=== PATIENT | female | born 1940 | race Caucasian/White ===

== ENCOUNTER 2018-04-01 18:15 | Inpatient (IN) | payer MEDICARE, OTHER, SELFPAY ==
[2018-04-01] VITALS (7 sets, daily range): BP systolic 118–125; BP diastolic 50–56; PULSE 87–130; RESP 14–31; TEMP 37.2–38.1; O2SAT 94–97; BMI 23.3
--- NOTE | 2018-04-01 18:54 | RAD_ITS ---
STUDY: X-RAY CHEST REASON FOR EXAM: Female, 77 years old. Nausea and vomiting for 5 days TECHNIQUE: AP COMPARISON: None. FINDINGS: Surgical clips project in the left axilla. EKG leads project over the chest. The lungs are clear but under expanded. There is no demonstrated pleural abnormality. Normal size heart. Normal mediastinum and shobha. Normal visualized pulmonary arteries. Normal visualized aortic arch and descending thoracic aorta. No acute bony process. There is no demonstrated abnormality of the visualized soft tissue structures of the upper abdomen. RAD/Chest 1 View (Portable) IMPRESSION: 1. Nonacute portable x-ray examination of the chest. Electronically Signed: Nigel Lal MD at 19:43 EST , Service support ,
--- NOTE | 2018-04-01 18:55 | EKG12_ITS ---
Test Reason : N/V Blood Pressure : / mmHG Vent. Rate : 124 BPM Atrial Rate : 124 BPM P-R Int : 128 ms QRS Dur : 078 ms QT Int : 308 ms P-R-T Axes : 054 005 012 degrees QTc Int : 442 ms Sinus tachycardia Inferior infarct , age undetermined Possible Anterior infarct , age undetermined Abnormal ECG Confirmed by SIS BURR, VAHE ([id number]), food editor BRYAN BAPTISTE ([id number]) on 04/04/2018 2:14:10 PM Referred By: MR Confirmed By:VAHE ALEGRE MD
[2018-04-01] MEDS: Ondansetron 4 MG/2 ML Vial IV (19:25)
[2018-04-01] MEDS: Acetaminophen 325 MG Tablet 650 MG PO (19:25)
[2018-04-01] MEDS: 0.9% Normal Saline 1,000 ML 1000 ML IV (19:25)
[2018-04-01 19:42] LABS: ALB/GLOB Ratio 0.5 RATIO (0.9-2.4); AST(SGOT) 163 U/L (15-37); Alanine Aminotransfer ALT/SGPT 93 U/L (13-56); Albumin, Serum 2.2 g/dL (3.2-5.0); Alkaline Phosphatase 538 U/L (45-117); Anion Gap 16 (5-15); BUN 28 mg/dL (7-18); BUN/Creat Ratio 16.4 RATIO (10-20); Calcium,Total 7.2 mg/dL (8.5-10.1); Chloride 97 mmol/L (98-107); Creatinine, Serum 1.71 mg/dL (0.55-1.02); EST Glomerular Filtration Rate 31 mL/min (>60); Est Glom Filt Rate - Afr Amer 37 mL/min (>60); Estimated Creatinine Clearance 25.19 ml/min; Globulin 4.3 g/dL (2.2-4.2); Glucose 182 mg/dL (74-106); Potassium 3.2 mmol/L (3.5-5.1); Protein, Total 6.5 g/dL (6.4-8.2); Sodium Level 134 mmol/L (136-145)
--- NOTE | 2018-04-01 19:53 | CT_ITS ---
STUDY: CT ABDOMEN AND PELVIS WITHOUT CONTRAST REASON FOR EXAM: Female, 77 years old. Nausea, vomiting RADIATION DOSAGE (If Supplied By Facility): CTDIvol = ( 6.48 ) mGy, DLP = ( 322.34 ) mGycm TECHNIQUE: Transaxial images were obtained from the dome of the diaphragm to the symphysis pubis without oral contrast, and without intravenous contrast. Sagittal and coronal images were reconstructed. Individualized dose optimization techniques were used for this CT. COMPARISON: None. FINDINGS: There are multiple cavitary nodules of the lung bases measuring up to 1.8 cm in the right lung base. The visualized portions of the heart are within normal limits. Mild adenopathy of the upper abdomen adjacent to the celiac axis measuring up to 1.5 cm. Mild adenopathy of the retroperitoneum also identified with the largest single lymph node between the aorta and IVC measuring 1.1 cm (short axis). A dominant kervin mass is not seen, however. The liver is abnormal with a large area of diminished rounded density in the left hepatic lobe measuring up to 6.8 cm. Additional low density hepatic masses are seen although limited in detail given lack of IV contrast. The gallbladder is contracted. Normal spleen. Normal pancreas. Normal bilateral adrenal glands. Normal right kidney. Normal left kidney. Stomach is poorly evaluated given lack of distention. Gastric wall thickening cannot be excluded. Normal small intestine. Normal colon. The appendix is visualized and appears normal. There is diffuse atherosclerotic calcification of the abdominal aorta, without a demonstrated aneurysm. Normal inferior vena cava. Bilateral gonadal vein vascular phleboliths are present. Normal urinary bladder. Normal abdominal wall. There are diffuse degenerative changes of the visualized lumbar spine. Right breast is surgically absent. There are surgical clips in the left breast. CT/Abdomen/Pelvis without Cont IMPRESSION: 1. Multiple cavitary pulmonary nodules and multiple (including large dominant) hepatic masses suspicious for neoplasm. Differential diagnosis of cavitary nodules also includes septic emboli, however. Limited evaluation given lack of IV contrast. 2. Mild retroperitoneal and upper abdominal adenopathy but no dominant kervin mass. Electronically Signed: Nigel Lal MD at 21:08 EST , Service support ,
[2018-04-01 19:56] LABS: Absolute Lymphocyte Count 0.11 X10^3/ul (0.83-4.51); Absolute Neutrophil Count 6.3 X10^3/uL (2.0-7.7); Basophil# 0.01 X10^3/uL; Basophil% 0.1 % (0-1); Eosinophil# 0.17 X10^3/uL; Eosinophils% 2.5 % (0-5); Hematocrit 31.8 % (37-47); Lymphocyte # 0.11 X10^3/ul (4.0); Lymphocyte % 1.6 % (19-41); Mean Corp Hgb Conc 31.4 g/gl (32-36); Mean Corpuscular Hgb 30.6 pg (27.0-32.0); Mean Corpuscular Volume 97.2 fL (81-99); Mean Platelet Vol. 10.8 fl (6.2-12.0); Monocyte# 0.06 X10^3/uL; Monocyte% 0.9 % (0-10); Neutrophil % 93.6 % (47-70); Platelet Count 153 K/mm3 (150-450); RBC Distribution Width CV 13.9 % (11.6-14.6); RBC Distribution Width SD 47.3 fl (35.1-43.9); Red Blood Count 3.27 M/mm3 (4.2-5.4); White Blood Count 6.7 K/mm3 (4.4-11.0)
[2018-04-01 20:00] LABS: Differential Indicated SCAN CRITERIA MET; POSITIVE COUNT NO; POSITIVE DIFFERENTIAL YES; POSITIVE MORPHOLOGY YES
--- NOTE | 2018-04-01 20:23 | ED.RN ---
dr. hernandez aware of lactic 6.0
[2018-04-01 20:27] LABS: Anisocytosis RARE; Macrocytosis RARE; Platelet Estimate ADEQUATE (ADEQ)
[2018-04-01 20:37] LABS: Lipase 124 U/L (73-393)
[2018-04-01] MEDS: Lactated Ringers 1,000 ML 999 ML IV (20:40)
[2018-04-01 21:31] LABS: Bacteria 0 SEEN /hpf (None Seen); Mucous, Urine 0 SEEN /hpf (<or=2+)
[2018-04-01 21:37] LABS: Color, Urine Amber (Yellow); Glucose, Dipstick Normal (Normal); Ketone-Dipstick Negative (Negative); Leukocyte Esterase-Dipstick 25 /ul (Negative); Nitrite-Dipstick Negative (Negative); Occult Blood-Urine 25 /ul (Negative); Protein-Dipstick 30 mg/dl (Negative); Specific Gravity, Urine 1.015 (1.002-1.030); Urine Clarity Sl. Cloudy (Clear); Urine Urobilinogen 8 mg/dl (Normal)
[2018-04-01 21:52] LABS: Urine Bilirubin Dipstick 3 mg/dL (Negative)
[2018-04-01 21:54] LABS: Fine Granular Cast- Urine 0-5 SEEN /lpf (0-5)
[2018-04-01 21:55] LABS: Hyaline Cast 0-5 SEEN /lpf (0-5)
[2018-04-01 21:57] LABS: Red Blood Cells-Urine 0-5 SEEN /hpf (0-5)
[2018-04-01 21:58] LABS: White Blood Cells 0-5 SEEN /hpf (0-5)
[2018-04-01 22:00] LABS: Squamous Epithelial Cells - UA 0-5 SEEN /hpf (5-10); Transitional Epithelial - Ur 0-5 SEEN /hpf (0-5)
[2018-04-01] MEDS: Lactated Ringers 1,000 ML 250 ML IV (22:01)
--- NOTE | 2018-04-01 22:57 | PCM.HP.STD ---
Problem List (1) Liver nodules Status: Acute (2) Severe sepsis Status: Acute (3) Dyslipidemia Status: Chronic (4) Hypothyroidism Status: Chronic (5) Diabetes mellitus type 2 Status: Chronic (6) Hypertension Status: Chronic History of Present Illness Date of Admission: 04/01/18 Chief Complaint: Fever for 2-3 days The patient is a 77 year old F with multiple comorbidities as listed below came to ED with fever for 2-3 days. Patient also has generalized weakness and gradually losing weight for last 6 months but not able to quantify exactly. She is legally short of breath on mild exertion. As per the daughter, she had black stool today. Patient does not remember whether she had a colonoscopy or EGD. In ER, heart rate was 130/min, T-max 100.6 Fahrenheit, pulse ox 97% on room air tachypnea, RR 31/min. Basic blood work shows no leukocytosis, BUN 28, creatinine 1.7, anion gap 16 K3.2. Alkaline phosphatase and ALT AST elevated. Troponin 0 0.214. Lipase 124. lactic acid 6.0. Patient denies lower urinary tract symptoms or change in bowel movement. UA no pyuria, no hematuria, LE 25, nitrite negative. \ Past Medical History Past Medical History (Chronic Problems): Chronic Problems Dyslipidemia (Chronic) Hypothyroidism (Chronic) Diabetes mellitus type 2 (Chronic) Hypertension (Chronic) Allergies Penicillins [PCN] Allergy (Verified 04/01/18 19:26) Unknown Home Medications: Ambulatory Orders Medication Instructions Recorded Aspirin [Aspirin, Baby] 81 mg PO DAILY@0800 04/01/18 Atorvastatin Calcium 20 mg PO DAILY 04/01/18 Levothyroxine Sodium 75 mcg DAILY 04/01/18 Losartan Potassium 100 mg DAILY 04/01/18 Metformin(XR) [Glucophage Xr] 500 mg DAILY 04/01/18 Multivit-Min/Iron/Folic/Lutein 1 each PO DAILY 04/01/18 [Centrum Silver Women Tablet] Omeprazole 20 mg PO DAILY 04/01/18 Smoking Status: Never smoker - *Family History Paternal History Items: No pertinent history Review of Systems Constitutional: Reports: Anorexia, Chills, Fever, Weakness, Fatigue. Denies: Weight Change HEENT: Denies: Head Aches, Sinus Congestion, Sinus Drainage Cardiovascular: Denies: Chest Pain, Palpitations Respiratory: Denies: Cough, Shortness of breath at rest, Sputum production Gastrointestinal: Reports: - - Black stool possible melena. Denies: Abdominal Pain, Nausea, Vomiting Genitourinary: Denies: Dysuria Musculoskeletal: Denies: Joint Pain, Joint Tenderness Skin: Denies: Rash, Wounds Neurological: Reports: Balance problems. Denies: Focal weakness, Numbness, Tingling Psychiatric: Denies: Anxiety, Depression, Homicidal Ideations, Suicidal Ideations Hematologic/ Lymphatic: Denies: Easy Bruising, Easy Bleeding VTE Information - Inpt Only VTE Present on Admission: No VTE Mechan Device Prophylaxis: None VTE Pharm Prophylaxis ordered?: Yes Patient Problems: Active and Suspected Problems Liver nodules (Acute) Severe sepsis (Acute) - Physical Exam General: Alert, Oriented x3, Cooperative HEENT: Atraumatic, PERRLA, EOMI, Normocephalic Oral: Dry Mucosa Neck: Supple, No JVD, Negative Carotid Bruits Lungs: Clear to auscultation, No rhonchi, No wheeze, No rales, Diminished - Air entry diminished Cardiovascular: Regular rate, Regular Rhythm, Normal S1, Normal S2, No murmurs Abdomen: Bowel Sounds Present, Soft, Non-Distended, No Hepato-splenomegaly, - - Mild deep tenderness over right upper quadrant Extremities: No edema, Capillary Refill Less than 3 Seconds Skin: No rashes, No breakdown Musculoskeletal: No Tenderness to Palpation of Joints or Extremities, Arthritic Changes, Muscle Wasting Neurological: Cranial nerves II-XII grossly intact, Deep Tendon Reflexes 2+/4 and Symmetrical, Neuro grossly intact Psych/Mental Status: Normal Affect, Appropriate Vital Signs Temp Pulse Resp BP Pulse Ox 100.6 F H 113 H 14 125/54 H 97 04/01/18 22:00 04/01/18 22:00 04/01/18 22:00 04/01/18 22:00 04/01/18 22:00 Oxygen Delivery Method Room Air Weight: 140 lb Body Mass Index (BMI) 23.3 Laboratory Tests Past 24 Hrs 04/01/18 04/01/18 04/01/18 19:10 19:10 19:10 WBC 6.7 RBC 3.27 L Hgb 10.0 L Hct 31.8 L MCV 97.2 MCH 30.6 MCHC 31.4 L RDW 13.9 RDW Differential 47.3 H Plt Count 153 MPV 10.8 Immature Gran % (Auto) 1.300 H Neut % (Auto) 93.6 H Lymph % (Auto) 1.6 L [place] % (Auto) 0.9 Eos % (Auto) 2.5 Baso % (Auto) 0.1 Absolute Neuts (auto) 6.3 Absolute Lymphs (auto) 0.11 L Total Counted Not Reportable Differential Comment SEE COMMENT Platelet Estimate ADEQUATE Anisocytosis RARE Macrocytosis RARE Sodium 134 L Potassium 3.2 L Chloride 97 L Carbon Dioxide 21.0 Anion Gap 16 H BUN 28 H Creatinine 1.71 H Estim Creat Clear Calc 25.19 Est GFR (MDRD) Af Amer 37 L Est GFR (MDRD) Non-Af 31 L BUN/Creatinine Ratio 16.4 Glucose 182 H Lactic Acid Calcium 7.2 L Total Bilirubin 3.90 H AST 163 H ALT 93 H Alkaline Phosphatase 538 H Troponin I 0.214 H Total Protein 6.5 Albumin 2.2 L Globulin 4.3 H Albumin/Globulin Ratio 0.5 L Lipase 124 Urine Color Urine Clarity Urine pH Ur Specific [place] Urine Protein Urine Glucose (UA) Urine Ketones Urine Occult Blood Urine Nitrite Urine Bilirubin Urine Urobilinogen Ur Leukocyte Esterase Urine RBC Urine WBC Ur Squamous Epith Cells Ur Transition Epith Cell Urine Bacteria Hyaline Casts Fine Granular Casts Urine Mucus 04/01/18 04/01/18 19:40 21:25 WBC RBC Hgb Hct MCV MCH MCHC RDW RDW Differential Plt Count MPV Immature Gran % (Auto) Neut % (Auto) Lymph % (Auto) [place] % (Auto) Eos % (Auto) Baso % (Auto) Absolute Neuts (auto) Absolute Lymphs (auto) Total Counted Differential Comment Platelet Estimate Anisocytosis Macrocytosis Sodium Potassium Chloride Carbon Dioxide Anion Gap BUN Creatinine Estim Creat Clear Calc Est GFR (MDRD) Af Amer Est GFR (MDRD) Non-Af BUN/Creatinine Ratio Glucose Lactic Acid 6.0 H* Calcium Total Bilirubin AST ALT Alkaline Phosphatase Troponin I Total Protein Albumin Globulin Albumin/Globulin Ratio Lipase Urine Color Cindy Urine Clarity Sl. Cloudy Urine pH 5.0 Ur Specific [place] 1.015 Urine Protein 30 H Urine Glucose (UA) Normal Urine Ketones Negative Urine Occult Blood 25 H Urine Nitrite Negative Urine Bilirubin 3 H Urine Urobilinogen 8 H Ur Leukocyte Esterase 25 H Urine RBC 0-5 SEEN Urine WBC 0-5 SEEN Ur Squamous Epith Cells 0-5 SEEN Ur Transition Epith Cell 0-5 SEEN Urine Bacteria 0 SEEN Hyaline Casts 0-5 SEEN Fine Granular Casts 0-5 SEEN Urine Mucus 0 SEEN Assessment/Plan All Active Problems Liver nodules (Acute) Severe sepsis (Acute) The patient is a 77 year old F with multiple comorbidities as listed below came to ED with fever for 2-3 days. Patient also has generalized weakness and gradually losing weight for last 6 months but not able to quantify exactly. She is legally short of breath on mild exertion. As per the daughter, she had black stool today. Patient does not remember whether she had a colonoscopy or EGD. In ER, heart rate was 130/min, T-max 100.6 Fahrenheit, pulse ox 97% on room air tachypnea, RR 31/min. Basic blood work shows no leukocytosis, BUN 28, creatinine 1.7, anion gap 16 K3.2. Alkaline phosphatase and ALT AST elevated. Troponin 0 0.214. Lipase 124. lactic acid 6.0. Patient denies lower urinary tract symptoms or change in bowel movement. UA no pyuria, no hematuria, LE 25, nitrite negative. Chest x-ray shows nonacute cardiopulmonary abnormality. CT abdomen was done which showed multiple cavitary pulmonary nodules and multiple including large dominant hepatic masses suspicious for neoplasm. Mild retroperitoneal upper abdominal adenopathy. This raises suspicion for septic emboli or metastasis. Patient is further admitted. 1. Septic shock probably secondary to septic emboli in lungs or liver/neoplastic/metastatic: It seems patient does not follow regularly follow-up PCP. Patient is being admitted in ICU for suspicion of septic shock with high lactic acid which may complicated from metformin and hypoperfusion. Blood cultures x2. Soda Fountain Operator consult for further opinion. Currently patient is not hypotensive. Exact primary is unclear. Consult general surgery for possible colonoscopy. Patient had aztreonam 2 g in ER and vancomycin. Started on IV Levaquin. Shunt is allergic to penicillin 2. Elevated LFT, possible from multiple liver nodules/possible metastatic colon total bili is 3.9, ALT AST, 93/163, alkaline phosphatase 538. 3. Acute kidney injury, possible from dehydration/ATN from sepsis: IV fluid normal saline. Monitor intake and output. UA is negative for pyuria/UTI. 4. Electrolyte abnormality with high anion gap metabolic acidosis: Sodium 134. Anion gap 16 bicarb 21. IV fluid normal saline. Replace and monitor electrolytes. 5. Possible GI bleed with normochromic normocytic anemia: As per the daughter, patient had one black stool today. Patient not on iron supplements. H&H 01/04.8, platelet count 153. No previous labs to compare. Monitor CBC daily. Multiple comorbidities including hypertension, dyslipidemia, hypothyroidism: Multiple comorbidities complicates the present care and expect difficult and delay recovery Home medication reconciliation done. 6. DVT prophylaxis: Pharmacological prophylaxis contracted in view of possible GI bleed with anemia. Clinical Impression(s) from Imaging Studies Chest X-Ray 04/01/18 18:54 IMPRESSION: 1. Nonacute portable x-ray examination of the chest. Abdomen/Pelvis CT 04/01/18 19:53 IMPRESSION: 1. Multiple cavitary pulmonary nodules and multiple (including large dominant) hepatic masses suspicious for neoplasm. Differential diagnosis of cavitary nodules also includes septic emboli, however. Limited evaluation given lack of IV contrast. 2. Mild retroperitoneal and upper abdominal adenopathy but no dominant kervin mass. Code Visit Inpatient E&M: 10979 Init Hosp L3
[2018-04-01] MEDS: Vancomycin IV 1,000 MG/200 ML BAG 200 MG IV (23:24)
--- NOTE | 2018-04-01 23:38 | ED.DCSUM_ITS ---
- ER Visit Summary Date of Service: 04/01/18 Chief Complaint: Generalized illness History of Present Illness: The patient is a 77 F presenting for evaluation secondary to a generalized illness. Patient reports that over the course of the last week, but family members state it is more so over the last couple of months the patient has been having a general functional decline. This is been associated with intermittent fevers, nausea vomiting, generalized weakness. This is also been associated with decreased appetite and p.o. intake. Been associated with episodes of nausea and vomiting this week, no diarrhea, no reports of abdominal pain dysuria or hematuria. Patient denies any cough shortness of breath or chest pain associated with this. She denies any prior similar episodes in the past. Review of systems otherwise negative. Physical Examination: Vital signs notable for heart rate of 129. Well-nourished female no acute distress. Head normocephalic. No conjunctival pallor or scleral icterus. Dry mucous membranes. Neck supple. Heart tachycardic and regular, lungs sounds clear to auscultation bilaterally no respiratory distress. Abdomen was soft nontender nondistended. No peripheral edema noted. Skin normal color. No lateralizing neurological deficits. Test Results: EKG demonstrates sinus tachycardia with a rate of 124 with inferior Q waves. Chest x-ray shows no acute pathology. CT abdomen and pelvis shows some lung lesions and large liver lesion which are concerning for the possibility of malignancy. CBC unremarkable with a neutrophilic predominance. Chemistry shows evidence of elevated total bilirubin elevated alkaline phosphatase and normal lipase. Troponin elevated to an indeterminate level and lactic acid 6 Emergency Department Course and Treatment: Patient presented secondary to generalized illness. She was profoundly tachycardic so workup was obtained she was given a liter of normal saline hydration. Patient was found to have elevated liver enzymes and lactic acidosis. She was given an additional liter of lactated Ringer's, blood cultures were obtained. CT abdomen and pelvis was obtained to ascertain the patient's reason for having elevated liver enzymes and shows concern for the possibility of malignancy. I did contact oncology about this. Due to the fact that there is potential concern for infection, I started the patient on vancomycin and aztreonam. Patient will be admitted for further workup and treatment. Disposition: Admission Impression: 1. Liver mass with potential lung metastases 2. Lactic acidosis 3. Elevated troponin Critical care time 45 minutes This note was generated with [employer] software. It may contain incorrect words, spelling, and punctuation that were not noted in review of the chart prior to signing ED Disposition - Plan for ED Patient: Chief Complaint: Nausea/Vomiting
[2018-04-01 23:44] LABS: Reflex Lactate? Y
[2018-04-02] VITALS (26 sets, daily range): BP systolic 101–156; BP diastolic 34–99; PULSE 89–120; RESP 15–27; TEMP 36.8–37.3; O2SAT 94–98; BMI 23.3
[2018-04-02] MEDS: levoFLOXacin IV 500 MG/100 ML BAG 100 MG IV (01:00)
[2018-04-02] MEDS: 0.9% Normal Saline 1,000 ML 150 ML IV ×3 (01:00→19:16)
[2018-04-02] MEDS: Pantoprazole Sodium 40 MG Tablet PO ×2 (01:00→11:13)
[2018-04-02 01:03] LABS: Lactic Acid 4.3 mmol/L (0.4-2.0)
[2018-04-02 01:09] LABS: International Normalized Ratio 1.4; Prothrombin Time (Protime)PT. 16.9 SECONDS (11.7-14.9)
[2018-04-02 01:10] LABS: Partial Thromboplast Time 34.5 Seconds (24.1-36.2)
[2018-04-02] MEDS: 0.9% Normal Saline 1,000 ML 999 ML IV (01:30)
[2018-04-02 04:37] LABS: Absolute Lymphocyte Count 0.31 X10^3/ul (0.83-4.51); Absolute Neutrophil Count 9.8 X10^3/uL (2.0-7.7); Basophil# 0.01 X10^3/uL; Basophil% 0.1 % (0-1); Hematocrit 25.7 % (37-47); Hemoglobin 8.1 g/dl (12.0-15.0); Lymphocyte # 0.31 X10^3/ul (4.0); Lymphocyte % 2.8 % (19-41); Mean Corp Hgb Conc 31.5 g/gl (32-36); Mean Corpuscular Hgb 30.2 pg (27.0-32.0); Mean Corpuscular Volume 95.9 fL (81-99); Mean Platelet Vol. 10.6 fl (6.2-12.0); Monocyte# 0.64 X10^3/uL; Monocyte% 5.8 % (0-10); Neutrophil # 9.79 X10^3/uL (2.7-7.7); Neutrophil % 88.7 % (47-70); Platelet Count 96 K/mm3 (150-450); RBC Distribution Width CV 13.7 % (11.6-14.6); RBC Distribution Width SD 45.5 fl (35.1-43.9); Red Blood Count 2.68 M/mm3 (4.2-5.4)
[2018-04-02 04:39] LABS: Differential Indicated SCAN CRITERIA MET; POSITIVE COUNT YES; POSITIVE DIFFERENTIAL YES; POSITIVE MORPHOLOGY YES
[2018-04-02 04:59] LABS: AST(SGOT) 139 U/L (15-37); Alanine Aminotransfer ALT/SGPT 73 U/L (13-56); Albumin, Serum 1.6 g/dL (3.2-5.0); Alkaline Phosphatase 329 U/L (45-117); Anion Gap 12 (5-15); BUN 24 mg/dL (7-18); BUN/Creat Ratio 19.2 RATIO (10-20); Bilirubin, Direct 2.98 mg/dL (0.00-0.30); Calcium,Total 6.6 mg/dL (8.5-10.1); Chloride 104 mmol/L (98-107); Creatinine, Serum 1.25 mg/dL (0.55-1.02); EST Glomerular Filtration Rate 44 mL/min (>60); Est Glom Filt Rate - Afr Amer 54 mL/min (>60); Estimated Creatinine Clearance 33.06 ml/min; Globulin 3.3 g/dL (2.2-4.2); Glucose 138 mg/dL (74-106); Magnesium 0.8 mg/dL (1.6-2.6); Phosphorus 2.3 mg/dL (2.5-4.9); Potassium 4.2 mmol/L (3.5-5.1); Protein, Total 4.9 g/dL (6.4-8.2); Sodium Level 138 mmol/L (136-145)
[2018-04-02] MEDS: Magnesium Sulfate 4gm/100mL 4 GM/100 ML IV.SOLN. IV (05:42)
[2018-04-02] MEDS: Levothyroxine 75 MCG Tablet PO (05:42)
--- NOTE | 2018-04-02 06:41 | CON.PCM_ITS ---
Problem List (1) Liver nodules Status: Acute (2) Severe sepsis Status: Acute (3) Dyslipidemia Status: Chronic (4) Hypothyroidism Status: Chronic (5) Diabetes mellitus type 2 Status: Chronic (6) Hypertension Status: Chronic Reason for Consult Date of Consultation: 04/02/18 Reason for Consultation: Severe sepsis History of Present Illness: The patient is a 77 year old F, with past medical history listed below, who pre sented to [facility] on 04/01/2018 secondary to generalized weakness. Patient reportedly had had general functional decline over weeks prior to presentation. Patient was brought in at the urging of her family. Patient reportedly has had intermittent fevers of last 2-3 days and generalized weakness. Patient had reported some nausea and vomiting, but is denying this at my evaluation. Patient does admit to decreased appetite and p.o. intake. Patient denies any abdominal pain, cough, dyspnea or chest pain. Patient denies any previous similar presentations. In the emergency room, patient was noted to be tachycardic at 129 bpm. Patient was also noted to have dry mucous membranes. Chest x-ray showed no acute pathology, but CT of the abdomen showed cavitary lung lesions at the base and a liver lesion. CBC showed no leukocytosis, but neutrophilic predominance. Troponin was mildly elevated and lactate was 6. Patient did receive some fluids and blood cultures. Patient was initiated on antibiotics. Patient initially was to go to the PCU, but after lactate was transferred to the intensive care unit for further monitoring. Since being in the intensive care unit, patient has had no hemodynamic instability and feels subjectively improved from presentation. Patient is reporting some insomnia, but it is unclear if this is stress associated with the news of lung lesions. Patient denies any pain at this time. Patient does have some dry mouth. Patient reports her last mammogram was approximately 1 year ago. Patient is unclear if she is ever had a colonoscopy. Patient states she has had some issues with asthma in the past, but does not use inhalers at the current time. Patient reports a minimal smoking history, but denies any drugs or alcohol. Past Medical History Past Medical History (Chronic Problems): Chronic Problems Dyslipidemia (Chronic) Hypothyroidism (Chronic) Diabetes mellitus type 2 (Chronic) Hypertension (Chronic) Allergies Penicillins [PCN] Allergy (Verified 04/01/18 19:26) Unknown Home Medications: Ambulatory Orders Medication Instructions Recorded Aspirin [Aspirin, Baby] 81 mg PO DAILY@0800 04/01/18 Atorvastatin Calcium 20 mg PO DAILY 04/01/18 Levothyroxine Sodium 75 mcg DAILY 04/01/18 Losartan Potassium 100 mg DAILY 04/01/18 Metformin(XR) [Glucophage Xr] 500 mg DAILY 04/01/18 Multivit-Min/Iron/Folic/Lutein 1 each PO DAILY 04/01/18 [Centrum Silver Women Tablet] Omeprazole 20 mg PO DAILY 04/01/18 Smoking Status: Never smoker - *Family History Paternal History Items: No pertinent history Review of Systems Comment: See HPI, otherwise negative x 10 systems Patient Problems: Active and Suspected Problems Liver nodules (Acute) Severe sepsis (Acute) - Physical Exam General: Alert, Oriented x3, Cooperative, No apparent distress, Well developed, Well nourished, - - No conversational dyspnea HEENT: Atraumatic, PERRLA, EOMI, Normocephalic, - - No scleral icterus or injection noted. Oral: No Gingival or Mucosal Lesions/ Ulcerations, Dry Mucosa Neck: Supple, No JVD, No Nodes, Trachea Midline Lungs: Clear to auscultation, Normal air movement, No rhonchi, No wheeze, No rales, - - No scleral icterus or injection noted. Cardiovascular: Regular rate, Regular Rhythm, Normal S1, Normal S2, No murmurs, No rub noted, No Gallop Abdomen: Bowel Sounds Present, Soft, Non Tender, Non-Distended Extremities: No clubbing, No cyanosis, No edema Skin: No rashes, No breakdown Musculoskeletal: No Tenderness to Palpation of Joints or Extremities Lymphatic: No Cervical, Supraclavicular, or Inguinal Adenopathy Neurological: Cranial nerves II-XII grossly intact, Neuro grossly intact, Sensory exam intact to light touch and pain Psych/Mental Status: Alert and oriented to time, place, person, mood and affect Vital Signs Temp Pulse Resp BP Pulse Ox 37.2 C 101 H 21 H 117/41 L 96 04/02/18 03:00 04/02/18 06:00 04/02/18 06:00 04/02/18 06:00 04/02/18 06:00 Oxygen Delivery Method Room Air Weight: 61.7 kg Body Mass Index (BMI) 23.3 Intake and Output for Last 24 Hours 03/31/18 04/01/1819 23:59 23:59 23:59 Intake Total 2981 / 2981 Output Total 550 / 550 Balance 2431 / 2431 Laboratory Tests Past 24 Hrs 04/01/18 04/01/18 04/01/18 00:00 00:45 19:10 WBC 6.7 RBC 3.27 L Hgb 10.0 L Hct 31.8 L MCV 97.2 MCH 30.6 MCHC 31.4 L RDW 13.9 RDW Differential 47.3 H Plt Count 153 MPV 10.8 Immature Gran % (Auto) 1.300 H Neut % (Auto) 93.6 H Lymph % (Auto) 1.6 L Falls % (Auto) 0.9 Eos % (Auto) 2.5 Baso % (Auto) 0.1 Absolute Neuts (auto) 6.3 Absolute Lymphs (auto) 0.11 L Total Counted Not Reportable Differential Comment SEE COMMENT Diff Path Review Platelet Estimate ADEQUATE Anisocytosis RARE Macrocytosis RARE PT 16.9 H INR 1.4 APTT 34.5 Sodium Potassium Chloride Carbon Dioxide Anion Gap BUN Creatinine Estim Creat Clear Calc Est GFR (MDRD) Af Amer Est GFR (MDRD) Non-Af BUN/Creatinine Ratio Glucose Lactic Acid 4.3 H* Calcium Phosphorus Magnesium Total Bilirubin Direct Bilirubin AST ALT Alkaline Phosphatase Troponin I Total Protein Albumin Globulin Albumin/Globulin Ratio Lipase Urine Color Urine Clarity Urine pH Ur Specific [place] Urine Protein Urine Glucose (UA) Urine Ketones Urine Occult Blood Urine Nitrite Urine Bilirubin Urine Urobilinogen Ur Leukocyte Esterase Urine RBC Urine WBC Ur Squamous Epith Cells Ur Transition Epith Cell Urine Bacteria Hyaline Casts Fine Granular Casts Urine Mucus 04/01/18 04/01/18 04/01/18 19:10 19:10 19:40 WBC RBC Hgb Hct MCV MCH MCHC RDW RDW Differential Plt Count MPV Immature Gran % (Auto) Neut % (Auto) Lymph % (Auto) [place] % (Auto) Eos % (Auto) Baso % (Auto) Absolute Neuts (auto) Absolute Lymphs (auto) Total Counted Differential Comment Diff Path Review Platelet Estimate Anisocytosis Macrocytosis PT INR APTT Sodium 134 L Potassium 3.2 L Chloride 97 L Carbon Dioxide 21.0 Anion Gap 16 H BUN 28 H Creatinine 1.71 H Estim Creat Clear Calc 25.19 Est GFR (MDRD) Af Amer 37 L Est GFR (MDRD) Non-Af 31 L BUN/Creatinine Ratio 16.4 Glucose 182 H Lactic Acid 6.0 H* Calcium 7.2 L Phosphorus Magnesium Total Bilirubin 3.90 H Direct Bilirubin AST 163 H ALT 93 H Alkaline Phosphatase 538 H Troponin I 0.214 H Total Protein 6.5 Albumin 2.2 L Globulin 4.3 H Albumin/Globulin Ratio 0.5 L Lipase 124 Urine Color Urine Clarity Urine pH Ur Specific [place] Urine Protein Urine Glucose (UA) Urine Ketones Urine Occult Blood Urine Nitrite Urine Bilirubin Urine Urobilinogen Ur Leukocyte Esterase Urine RBC Urine WBC Ur Squamous Epith Cells Ur Transition Epith Cell Urine Bacteria Hyaline Casts Fine Granular Casts Urine Mucus 04/01/18 04/02/18 04/02/18 21:25 00:45 03:50 WBC 11.0 RBC 2.68 L Hgb 8.1 L Hct 25.7 L MCV 95.9 MCH 30.2 MCHC 31.5 L RDW 13.7 RDW Differential 45.5 H Plt Count 96 L MPV 10.6 Immature Gran % (Auto) 2.600 H Neut % (Auto) 88.7 H Lymph % (Auto) 2.8 L [place] % (Auto) 5.8 Eos % (Auto) 0.0 Baso % (Auto) 0.1 Absolute Neuts (auto) 9.8 H Absolute Lymphs (auto) 0.31 L Total Counted Not Reportable Differential Comment Diff Path Review May foll Platelet Estimate Anisocytosis Macrocytosis PT INR APTT Sodium Potassium Chloride Carbon Dioxide Anion Gap BUN Creatinine Estim Creat Clear Calc Est GFR (MDRD) Af Amer Est GFR (MDRD) Non-Af BUN/Creatinine Ratio Glucose Lactic Acid Calcium Phosphorus Magnesium Total Bilirubin Direct Bilirubin AST ALT Alkaline Phosphatase Troponin I 0.237 H Total Protein Albumin Globulin Albumin/Globulin Ratio Lipase Urine Color Cindy Urine Clarity Sl. Cloudy Urine pH 5.0 Ur Specific [place] 1.015 Urine Protein 30 H Urine Glucose (UA) Normal Urine Ketones Negative Urine Occult Blood 25 H Urine Nitrite Negative Urine Bilirubin 3 H Urine Urobilinogen 8 H Ur Leukocyte Esterase 25 H Urine RBC 0-5 SEEN Urine WBC 0-5 SEEN Ur Squamous Epith Cells 0-5 SEEN Ur Transition Epith Cell 0-5 SEEN Urine Bacteria 0 SEEN Hyaline Casts 0-5 SEEN Fine Granular Casts 0-5 SEEN Urine Mucus 0 SEEN 04/02/18 04/02/18 03:50 03:50 WBC RBC Hgb Hct MCV MCH MCHC RDW RDW Differential Plt Count MPV Immature Gran % (Auto) Neut % (Auto) Lymph % (Auto) [place] % (Auto) Eos % (Auto) Baso % (Auto) Absolute Neuts (auto) Absolute Lymphs (auto) Total Counted Differential Comment Diff Path Review Platelet Estimate Anisocytosis Macrocytosis PT INR APTT Sodium 138 Potassium 4.2 Chloride 104 Carbon Dioxide 22.0 Anion Gap 12 BUN 24 H Creatinine 1.25 H Estim Creat Clear Calc 33.06 Est GFR (MDRD) Af Amer 54 L Est GFR (MDRD) Non-Af 44 L BUN/Creatinine Ratio 19.2 Glucose 138 H Lactic Acid Calcium 6.6 L Phosphorus 2.3 L Magnesium 0.8 L* Total Bilirubin 3.50 H Direct Bilirubin 2.98 H AST 139 H ALT 73 H Alkaline Phosphatase 329 H Troponin I 0.212 H Total Protein 4.9 L Albumin 1.6 L Globulin 3.3 Albumin/Globulin Ratio Lipase Urine Color Urine Clarity Urine pH Ur Specific [place] Urine Protein Urine Glucose (UA) Urine Ketones Urine Occult Blood Urine Nitrite Urine Bilirubin Urine Urobilinogen Ur Leukocyte Esterase Urine RBC Urine WBC Ur Squamous Epith Cells Ur Transition Epith Cell Urine Bacteria Hyaline Casts Fine Granular Casts Urine Mucus Clinical Impression(s) from Imaging Studies Chest X-Ray 04/01/18 18:54 IMPRESSION: 1. Nonacute portable x-ray examination of the chest. Electronically Signed: Nigel Lal MD at 19:43 EST , Service support , Abdomen/Pelvis CT 04/01/18 19:53 IMPRESSION: 1. Multiple cavitary pulmonary nodules and multiple (including large dominant) hepatic masses suspicious for neoplasm. Differential diagnosis of cavitary nodules also includes septic emboli, however. Limited evaluation given lack of IV contrast. 2. Mild retroperitoneal and upper abdominal adenopathy but no dominant kervin mass. Electronically Signed: Nigel Lal MD at 21:08 EST , Service support , Assessment/Plan Active and Suspected Problems Liver nodules (Acute) Severe sepsis (Acute) RECOMMENDATIONS: 1. Aggressive fluid hydration 2. Electrolyte repletion as indicated 3. Obtain echocardiogram 4. Likely obtain a CT scan with contrast tomorrow once hydrated 5. Anticipate need for biopsy during hospitalization IMPRESSIONS: 1. Possible severe sepsis Patient did present with tachycardia and fever. Patient does have cavitating nodules noted in bases of bilateral lungs. Differential would include septic emboli and malignancy above all else. Lactates are improving with fluid resuscitation. Patient does not have any obvious source at this time. The patient remains hemodynamically stable, likely okay to leave the intensive care unit later today. 2. Elevated LFT/liver mass Clinical suspicion for malignancy. Will attempt to stabilize patient for now. Probable need for biopsy in the future. Patient does have depressed albumin, but this may be secondary to decreased dietary intake. Anticipate need for CT scan of the chest abdomen and pelvis with contrast once renal function is improved. 3. Acute kidney injury Patient with no reported history of renal problems in the past. Patient does report decreased intake recently. There is also the concern for possible severe sepsis. Patient has received fluid resuscitation with some improvement. Patient will need a CT scan of the chest at some point, but will attempt to improve renal function initially. This should limit the risk of contrast- induced nephropathy complicating overall condition. 4. Hypokalemia/hypophosphatemia/hypomagnesemia Unclear etiology at this time. Patient is reporting decreased p.o. intake. We will replete as indicated. 5. Possible GI bleed Patient reportedly had one black stool on the day of presentation. Patient does not report using iron supplements. No abdominal pain is been reported. Will attempt stabilization, but endoscopy may be indicated. Likely obtain a CT scan of the chest, abdomen and pelvis with contrast prior to intervention. Code Visit Inpatient E&M: 19698 Init Hosp L3
--- NOTE | 2018-04-02 11:08 | PCM.PN.HOSP ---
Patient Problems: Active and Suspected Problems Liver nodules (Acute) Severe sepsis (Acute) Subjective: Patient was seen and examined in ICU. Admitted last night with fever and managed as septic shock. Patient has remained vitally stable. Blood pressure is controlled. Did not require use of pressors. On IV Levaquin. Patient denied any new complaints. Feels well. Denies any worsening shortness of breath, fever, chills, diarrhea, nausea or vomiting Vitals/I&O's: Vital Signs Temp Pulse Resp BP Pulse Ox 98.8 F 95 16 113/97 H 96 04/02/18 07:45 04/02/18 08:00 04/02/18 08:00 04/02/18 08:00 04/02/18 08:00 Oxygen Delivery Method Room Air Weight: 61.7 kg Body Mass Index (BMI) 23.3 Intake and Output for Last 24 Hours 03/31/18 04/01/18 04/02/18 23:59 23:59 23:59 Intake Total 2981 / 2981 Output Total 550 / 550 Balance 2431 / 2431 General: Alert, Oriented x3, Cooperative, No apparent distress, - - Not on oxygen HEENT: Atraumatic, PERRLA, EOMI, Normocephalic Oral: Moist Mucosa Neck: Supple, No JVD, Negative Carotid Bruits Lungs: Normal air movement, Diminished Cardiovascular: Regular rate, Regular Rhythm, Normal S1, Normal S2, No murmurs Abdomen: Bowel Sounds Present, Soft, Non Tender, Non-Distended, No Hepato-splenomegaly Extremities: No edema, Capillary Refill Less than 3 Seconds Skin: No rashes, No breakdown Musculoskeletal: No Tenderness to Palpation of Joints or Extremities Lymphatic: No Cervical, Supraclavicular, or Inguinal Adenopathy Neurological: Cranial nerves II-XII grossly intact, Neuro grossly intact Psych/Mental Status: Normal Affect, Appropriate Laboratory Results 04/01/18 00:00: Lactic Acid 4.3 H* 04/01/18 00:45: PT 16.9 H, INR 1.4, APTT 34.5 04/01/18 19:10: WBC 6.7, RBC 3.27 L, Hgb 10.0 L, Hct 31.8 L, MCV 97.2, MCH 30.6, MCHC 31.4 L, RDW 13.9, RDW Differential 47.3 H, Plt Count 153, MPV 10.8, Immature Gran % (Auto) 1.300 H, Neut % (Auto) 93.6 H, Lymph % (Auto) 1.6 L, [place] % (Auto) 0.9, Eos % (Auto) 2.5, Baso % (Auto) 0.1, Absolute Neuts (auto) 6.3, Absolute Lymphs (auto) 0.11 L, Total Counted Not Reportable, Differential Comment SEE COMMENT, Platelet Estimate ADEQUATE, Anisocytosis RARE, Macrocytosis RARE 04/01/18 19:10: Sodium 134 L, Potassium 3.2 L, Chloride 97 L, Carbon Dioxide 21.0, Anion Gap 16 H, BUN 28 H, Creatinine 1.71 H, Estim Creat Clear Calc 25.19, Est GFR (MDRD) Af Amer 37 L, Est GFR (MDRD) Non-Af 31 L, BUN/Creatinine Ratio 16.4, Glucose 182 H, Calcium 7.2 L, Total Bilirubin 3.90 H, AST 163 H, ALT 93 H, Alkaline Phosphatase 538 H, Troponin I 0.214 H, Total Protein 6.5, Albumin 2.2 L, Globulin 4.3 H, Albumin/Globulin Ratio 0.5 L 04/01/18 19:10: Lipase 124 04/01/18 19:40: Lactic Acid 6.0 H* 04/01/18 21:25: Urine Color Cindy, Urine Clarity Sl. Cloudy, Urine pH 5.0, Ur Specific [place] 1.015, Urine Protein 30 H, Urine Glucose (UA) Normal, Urine Ketones Negative, Urine Occult Blood 25 H, Urine Nitrite Negative, Urine Bilirubin 3 H, Urine Urobilinogen 8 H, Ur Leukocyte Esterase 25 H, Urine RBC 0-5 SEEN, Urine WBC 0-5 SEEN, Ur Squamous Epith Cells 0-5 SEEN, Ur Transition Epith Cell 0-5 SEEN, Urine Bacteria 0 SEEN, Hyaline Casts 0-5 SEEN, Fine Granular Casts 0-5 SEEN, Urine Mucus 0 SEEN 04/02/18 00:45: Troponin I 0.237 H 04/02/18 03:50: WBC 11.0, RBC 2.68 L, Hgb 8.1 L, Hct 25.7 L, MCV 95.9, MCH 30.2, MCHC 31.5 L, RDW 13.7, RDW Differential 45.5 H, Plt Count 96 L, MPV 10.6, Immature Gran % (Auto) 2.600 H, Neut % (Auto) 88.7 H, Lymph % (Auto) 2.8 L, [place] % (Auto) 5.8, Eos % (Auto) 0.0, Baso % (Auto) 0.1, Absolute Neuts (auto) 9.8 H, Absolute Lymphs (auto) 0.31 L, Total Counted Not Reportable, Diff Path Review July04/02/18 03:50: Sodium 138, Potassium 4.2, Chloride 104, Carbon Dioxide 22.0, Anion Gap 12, BUN 24 H, Creatinine 1.25 H, Estim Creat Clear Calc 33.06, Est GFR (MDRD) Af Amer 54 L, Est GFR (MDRD) Non-Af 44 L, BUN/Creatinine Ratio 19.2, Glucose 138 H, Calcium 6.6 L, Phosphorus 2.3 L, Magnesium 0.8 L*, Total Bilirubin 3.50 H, Direct Bilirubin 2.98 H, AST 139 H, ALT 73 H, Alkaline Phosphatase 329 H, Total Protein 4.9 L, Albumin 1.6 L, Globulin 3.3 04/02/18 03:50: Troponin I 0.212 H Current Medications Aspirin (Aspirin, Baby) 81 mg PO DAILY@0800 [facility] Atorvastatin Calcium (Lipitor) 20 mg PO DAILY@2200 [facility] Sodium Chloride () 1,000 mls @ 150 mls/hr IV .[id number] [facility] Last Admin: 04/02/18 01:00 Dose: 150 mls/hr Levofloxacin (Levaquin Iv) 250 mg in 50 mls @ 50 mls/hr IV Q24@2200 [facility] Sodium Chloride () 250 mls @ 15 mls/hr IV .[id number] PRN PRN Reason: SALINE FLUSH Levothyroxine Sodium (Synthroid) 75 mcg PO DAILY@0600 [facility] Last Admin: 04/02/18 05:42 Dose: 75 mcg Pantoprazole Sodium (Protonix) 40 mg PO DAILY [facility] Potassium Phos/Sodium Phos (Neutra-Phos Packet) 1 packet PO BID [facility] Stop: 04/04/18 10:01 Sodium Chloride () 5 - 15 ml IV UD PRN PRN Reason: SALINE FLUSH Medical Necessity - Tobacco Use Smoking Status: Never smoker Assessment/Plan All Active Problems Liver nodules (Acute) Severe sepsis (Acute) 77-year-old female with past medical history of hypertension, type II DM, hyperlipidemia who comes in with complaints of generalized weakness, weight loss and fever. 1. Septic shock, unclear etiology, resolved admitting chest x-ray was negative for any pulmonary infiltrates, UA was unremarkable Patient appears improved on IV Levaquin, slight increase in WBC count but still normal. 2D echo is pending, CT scan of the abdomen and pelvis shows multiple cavitary lesions in lungs and liver Will treat with empiric Levaquin for now, trend labs in a.m., monitor vitals, transfer to the [facility] floor 2. MAREN, unknown previous creatinine, admitted with creatinine 1.71, likely secondary to dehydration/septic shock, creatinine improved to 1.25 with IV fluids, will continue to monitor, no obstruction on CT of the abdomen and pelvis 3. Electrolyte imbalances - Hypokalemia, hypomagnesemia, hyponatremia, hypophosphatemia, replaced, recheck in am 4. Anion gap metabolic acidosis secondary to lactic acidosis, secondary to septic shock, resolved 5. Elevated LFTs, slightly improved, secondary to liver mass, CT scan of the abdomen and pelvis showed abnormal looking liver, rounded density in the left hepatic lobe measuring about 6.8 cm, additional hepatic masses were also seen. Continue to trend LFTs 6. Possible malignancy with multiple pulmonary and liver masses with retroperitoneal lymph nodes, will get CT of the abdomen and pelvis when patient's kidney functions have improved. 7. Possible GI bleed, will continue to trend H&H, hold SCDs and aspirin, continue on PPI 8. Hypertension, now hypotensive, will continue to monitor 9. Hypothyroidism, on replacement 10. Hyperlipidemia, on statins, will hold statins in light of elevated LFTs 11. DVT PPx- SCDs for now on account of possible GI bleed 12. GI ppx- on PPI Code Visit Inpatient E&M: 05846 Subs Hosp L2
[2018-04-02] MEDS: Na Biphos/Potassium Phosphate PACKET 1 PACKET PO (11:13)
[2018-04-02] MEDS: Aspirin 81 MG TAB.CHEW PO (11:13)
[2018-04-02] MEDS: 0.9% NaCl Peripheral Flush Adult/Peds IV (14:00)
[2018-04-02 14:33] LABS: Magnesium 2.3 mg/dL (1.6-2.6)
--- NOTE | 2018-04-02 15:08 | CON.PCM_ITS ---
Problem List (1) Liver nodules Status: Acute Reason for Consult Date of Consultation: 04/02/18 Reason for Consultation: Dark stools and liver lesion History of Present Illness: The patient is a 77 year old F who presented with sepsis yesterday afternoon. The patient was placed in the ICU and then transferred to the floor. The patient reports that for the last few months she has had no appetite and has not been eating and has been inadvertently losing weight. The patient does report that she has been having fevers for the last few days. She says that her dark stools of been happening for at least 1-2 weeks if not longer. She is not having any nausea or vomiting. She complains of no abdominal pain. She has no dysuria. She has no cough or production of sputum. The patient does report that she had a history of right breast cancer which was treated in [place] with a mastectomy many years ago. She reports she does not know if she is ever had a colonoscopy or EGD. She has never seen any gross blood in her stool. Past Medical History Past Medical History (Chronic Problems): Chronic Problems Dyslipidemia (Chronic) Hypothyroidism (Chronic) Diabetes mellitus type 2 (Chronic) Hypertension (Chronic) Allergies Penicillins [PCN] Allergy (Verified 04/01/18 19:26) Unknown Home Medications: Ambulatory Orders Medication Instructions Recorded Aspirin [Aspirin, Baby] 81 mg PO DAILY@0800 04/01/18 Atorvastatin Calcium 20 mg PO DAILY 04/01/18 Levothyroxine Sodium 75 mcg DAILY 04/01/18 Losartan Potassium 100 mg DAILY 04/01/18 Metformin(XR) [Glucophage Xr] 500 mg DAILY 04/01/18 Multivit-Min/Iron/Folic/Lutein 1 each PO DAILY 04/01/18 [Centrum Silver Women Tablet] Omeprazole 20 mg PO DAILY 04/01/18 Surgical History: no surgical history Smoking Status: Never smoker - *Family History Paternal History Items: No pertinent history Review of Systems Constitutional: Reports: Anorexia, Fever. Denies: Night Sweats HEENT: Denies: Difficulty Swallowing Cardiovascular: Denies: Chest Pain Respiratory: Denies: Cough, Shortness of Breath, Sputum production Gastrointestinal: Reports: Melena. Denies: Abdominal Pain, Hematemesis, Hematochezia, Nausea, Vomiting Genitourinary: Denies: Dysuria Musculoskeletal: Denies: Joint Tenderness Skin: Denies: Pruritis Neurological: Denies: Balance problems Hematologic/ Lymphatic: Denies: Easy Bruising Patient Problems: Active and Suspected Problems Liver nodules (Acute) Severe sepsis (Acute) - Physical Exam General: Alert, Oriented x3, Cooperative, No apparent distress HEENT: Atraumatic, PERRLA, EOMI Neck: No JVD Lungs: Normal air movement, No rhonchi Cardiovascular: Regular rate, Regular Rhythm Abdomen: Soft, Non Tender, Non-Distended Extremities: No cyanosis Skin: No rashes Musculoskeletal: No Tenderness to Palpation of Joints or Extremities Neurological: Cranial nerves II-XII grossly intact Psych/Mental Status: Normal Affect Vital Signs Temp Pulse Resp BP Pulse Ox 98.2 F 89 20 H 116/91 H 96 04/02/18 11:00 04/02/18 12:00 04/02/18 12:00 04/02/18 12:00 04/02/18 12:00 Oxygen Delivery Method Room Air Weight: 136 lb 0.403 oz Body Mass Index (BMI) 23.3 Intake and Output for Last 24 Hours 03/31/18 04/01/18 04/02/18 23:59 23:59 23:59 Intake Total 4376 / 4376 Output Total 1050 / 1050 Balance 3326 / 3326 Laboratory Tests Past 24 Hrs 04/01/18 04/01/18 04/01/18 00:00 00:45 19:10 WBC 6.7 RBC 3.27 L Hgb 10.0 L Hct 31.8 L MCV 97.2 MCH 30.6 MCHC 31.4 L RDW 13.9 RDW Differential 47.3 H Plt Count 153 MPV 10.8 Immature Gran % (Auto) 1.300 H Neut % (Auto) 93.6 H Lymph % (Auto) 1.6 L [place] % (Auto) 0.9 Eos % (Auto) 2.5 Baso % (Auto) 0.1 Absolute Neuts (auto) 6.3 Absolute Lymphs (auto) 0.11 L Total Counted Not Reportable Differential Comment SEE COMMENT Diff Path Review Platelet Estimate ADEQUATE Anisocytosis RARE Macrocytosis RARE PT 16.9 H INR 1.4 APTT 34.5 Sodium Potassium Chloride Carbon Dioxide Anion Gap BUN Creatinine Estim Creat Clear Calc Est GFR (MDRD) Af Amer Est GFR (MDRD) Non-Af BUN/Creatinine Ratio Glucose Lactic Acid 4.3 H* Calcium Phosphorus Magnesium Total Bilirubin Direct Bilirubin AST ALT Alkaline Phosphatase Troponin I Total Protein Albumin Globulin Albumin/Globulin Ratio Lipase Urine Color Urine Clarity Urine pH Ur Specific [place] Urine Protein Urine Glucose (UA) Urine Ketones Urine Occult Blood Urine Nitrite Urine Bilirubin Urine Urobilinogen Ur Leukocyte Esterase Urine RBC Urine WBC Ur Squamous Epith Cells Ur Transition Epith Cell Urine Bacteria Hyaline Casts Fine Granular Casts Urine Mucus 04/01/18 04/01/18 04/01/18 19:10 19:10 19:40 WBC RBC Hgb Hct MCV MCH MCHC RDW RDW Differential Plt Count MPV Immature Gran % (Auto) Neut % (Auto) Lymph % (Auto) [place] % (Auto) Eos % (Auto) Baso % (Auto) Absolute Neuts (auto) Absolute Lymphs (auto) Total Counted Differential Comment Diff Path Review Platelet Estimate Anisocytosis Macrocytosis PT INR APTT Sodium 134 L Potassium 3.2 L Chloride 97 L Carbon Dioxide 21.0 Anion Gap 16 H BUN 28 H Creatinine 1.71 H Estim Creat Clear Calc 25.19 Est GFR (MDRD) Af Amer 37 L Est GFR (MDRD) Non-Af 31 L BUN/Creatinine Ratio 16.4 Glucose 182 H Lactic Acid 6.0 H* Calcium 7.2 L Phosphorus Magnesium Total Bilirubin 3.90 H Direct Bilirubin AST 163 H ALT 93 H Alkaline Phosphatase 538 H Troponin I 0.214 H Total Protein 6.5 Albumin 2.2 L Globulin 4.3 H Albumin/Globulin Ratio 0.5 L Lipase 124 Urine Color Urine Clarity Urine pH Ur Specific [place] Urine Protein Urine Glucose (UA) Urine Ketones Urine Occult Blood Urine Nitrite Urine Bilirubin Urine Urobilinogen Ur Leukocyte Esterase Urine RBC Urine WBC Ur Squamous Epith Cells Ur Transition Epith Cell Urine Bacteria Hyaline Casts Fine Granular Casts Urine Mucus 04/01/18 04/02/18 04/02/18 21:25 00:45 03:50 WBC 11.0 RBC 2.68 L Hgb 8.1 L Hct 25.7 L MCV 95.9 MCH 30.2 MCHC 31.5 L RDW 13.7 RDW Differential 45.5 H Plt Count 96 L MPV 10.6 Immature Gran % (Auto) 2.600 H Neut % (Auto) 88.7 H Lymph % (Auto) 2.8 L [place] % (Auto) 5.8 Eos % (Auto) 0.0 Baso % (Auto) 0.1 Absolute Neuts (auto) 9.8 H Absolute Lymphs (auto) 0.31 L Total Counted Not Reportable Differential Comment Diff Path Review May foll Platelet Estimate Anisocytosis Macrocytosis PT INR APTT Sodium Potassium Chloride Carbon Dioxide Anion Gap BUN Creatinine Estim Creat Clear Calc Est GFR (MDRD) Af Amer Est GFR (MDRD) Non-Af BUN/Creatinine Ratio Glucose Lactic Acid Calcium Phosphorus Magnesium Total Bilirubin Direct Bilirubin AST ALT Alkaline Phosphatase Troponin I 0.237 H Total Protein Albumin Globulin Albumin/Globulin Ratio Lipase Urine Color Cindy Urine Clarity Sl. Cloudy Urine pH 5.0 Ur Specific [place] 1.015 Urine Protein 30 H Urine Glucose (UA) Normal Urine Ketones Negative Urine Occult Blood 25 H Urine Nitrite Negative Urine Bilirubin 3 H Urine Urobilinogen 8 H Ur Leukocyte Esterase 25 H Urine RBC 0-5 SEEN Urine WBC 0-5 SEEN Ur Squamous Epith Cells 0-5 SEEN Ur Transition Epith Cell 0-5 SEEN Urine Bacteria 0 SEEN Hyaline Casts 0-5 SEEN Fine Granular Casts 0-5 SEEN Urine Mucus 0 SEEN 04/02/18 04/02/18 04/02/18 03:50 03:50 14:00 WBC RBC Hgb Hct MCV MCH MCHC RDW RDW Differential Plt Count MPV Immature Gran % (Auto) Neut % (Auto) Lymph % (Auto) [place] % (Auto) Eos % (Auto) Baso % (Auto) Absolute Neuts (auto) Absolute Lymphs (auto) Total Counted Differential Comment Diff Path Review Platelet Estimate Anisocytosis Macrocytosis PT INR APTT Sodium 138 Potassium 4.2 Chloride 104 Carbon Dioxide 22.0 Anion Gap 12 BUN 24 H Creatinine 1.25 H Estim Creat Clear Calc 33.06 Est GFR (MDRD) Af Amer 54 L Est GFR (MDRD) Non-Af 44 L BUN/Creatinine Ratio 19.2 Glucose 138 H Lactic Acid Calcium 6.6 L Phosphorus 2.3 L Magnesium 0.8 L* 2.3 Total Bilirubin 3.50 H Direct Bilirubin 2.98 H AST 139 H ALT 73 H Alkaline Phosphatase 329 H Troponin I 0.212 H Total Protein 4.9 L Albumin 1.6 L Globulin 3.3 Albumin/Globulin Ratio Lipase Urine Color Urine Clarity Urine pH Ur Specific [place] Urine Protein Urine Glucose (UA) Urine Ketones Urine Occult Blood Urine Nitrite Urine Bilirubin Urine Urobilinogen Ur Leukocyte Esterase Urine RBC Urine WBC Ur Squamous Epith Cells Ur Transition Epith Cell Urine Bacteria Hyaline Casts Fine Granular Casts Urine Mucus 04/02/18 14:49 WBC RBC Hgb Hct MCV MCH MCHC RDW RDW Differential Plt Count MPV Immature Gran % (Auto) Neut % (Auto) Lymph % (Auto) [place] % (Auto) Eos % (Auto) Baso % (Auto) Absolute Neuts (auto) Absolute Lymphs (auto) Total Counted Differential Comment Diff Path Review Platelet Estimate Anisocytosis Macrocytosis PT INR APTT Sodium Pending Potassium Pending Chloride Pending Carbon Dioxide Pending Anion Gap Pending BUN Pending Creatinine Pending Estim Creat Clear Calc Est GFR (MDRD) Af Amer Pending Est GFR (MDRD) Non-Af Pending BUN/Creatinine Ratio Pending Glucose Pending Lactic Acid Calcium Pending Phosphorus Magnesium Total Bilirubin Pending Direct Bilirubin AST Pending ALT Pending Alkaline Phosphatase Pending Troponin I Total Protein Pending Albumin Pending Globulin Albumin/Globulin Ratio Lipase Urine Color Urine Clarity Urine pH Ur Specific [place] Urine Protein Urine Glucose (UA) Urine Ketones Urine Occult Blood Urine Nitrite Urine Bilirubin Urine Urobilinogen Ur Leukocyte Esterase Urine RBC Urine WBC Ur Squamous Epith Cells Ur Transition Epith Cell Urine Bacteria Hyaline Casts Fine Granular Casts Urine Mucus Clinical Impression(s) from Imaging Studies Chest X-Ray 04/01/18 18:54 IMPRESSION: 1. Nonacute portable x-ray examination of the chest. Electronically Signed: Nigel Lal MD at 19:43 EST , Service support , Abdomen/Pelvis CT 04/01/18 19:53 IMPRESSION: 1. Multiple cavitary pulmonary nodules and multiple (including large dominant) hepatic masses suspicious for neoplasm. Differential diagnosis of cavitary nodules also includes septic emboli, however. Limited evaluation given lack of IV contrast. 2. Mild retroperitoneal and upper abdominal adenopathy but no dominant kervin mass. Electronically Signed: Nigel Lal MD at 21:08 EST , Service support , Assessment/Plan All Active Problems Liver nodules (Acute) Severe sepsis (Acute) 77-year-old female with sepsis and possible liver mass with dark stool 1. The patient reports she has been having black stools for a few weeks with no abdominal pain. She was recently admitted with fevers and chills and malaise. She says she has not been feeling well for the last few months with no appetite and weight loss. The patient does have a history of remote mastectomy for right breast cancer treated at the [facility]. 2. The CT scan shows multiple cavitary lesions in the lungs that were visualized and a possible left lobe liver mass. The patient's creatinine precluded a CT with IV contrast. Repeat BMP shows improvement of creatinine and GFR. I will order a CT scan of the chest abdomen and pelvis with a triple phase of the abdomen and pelvis. It is hard to tell if this is infectious or malignant in nature. The patient has a slightly elevated white count with left shift. 3. The patient has never had a colonoscopy and may be having gastritis with bleeding. I do recommend EGD with colonoscopy but I will probably do this Tuesday. At this time the patient is not having any hypotension or gross bloody stools. She denies any abdominal pain. 4. The patient is having no pain to deep palpation especially in the right upper quadrant. She is diabetic however and I will obtain an ultrasound of the gallbladder to ensure that this is not the source of sepsis. Her liver enzymes are elevated. 5. She can continue diet today. I will likely start clears and start her bowel prep tomorrow in anticipation of upper and lower scope on Tuesday. Cliff Green MD Pager: [facility] [address] [place] [address], [address] [place] [address] Office:
[2018-04-02 15:11] LABS: ALB/GLOB Ratio 0.5 RATIO (0.9-2.4); AST(SGOT) 169 U/L (15-37); Alanine Aminotransfer ALT/SGPT 80 U/L (13-56); Albumin, Serum 1.7 g/dL (3.2-5.0); Alkaline Phosphatase 365 U/L (45-117); Anion Gap 10 (5-15); BUN 21 mg/dL (7-18); BUN/Creat Ratio 18.4 RATIO (10-20); Calcium,Total 6.9 mg/dL (8.5-10.1); Chloride 109 mmol/L (98-107); Creatinine, Serum 1.14 mg/dL (0.55-1.02); EST Glomerular Filtration Rate 49 mL/min (>60); Est Glom Filt Rate - Afr Amer 60 mL/min (>60); Estimated Creatinine Clearance 36.25 ml/min; Globulin 3.7 g/dL (2.2-4.2); Glucose 123 mg/dL (74-106); Potassium 4.9 mmol/L (3.5-5.1); Protein, Total 5.4 g/dL (6.4-8.2); Sodium Level 139 mmol/L (136-145)
--- NOTE | 2018-04-02 15:16 | CT_ITS ---
STUDY: CT CHEST WITH CONTRAST REASON FOR EXAM: Female, 77 years old. Sepsis, cavitary lung nodules RADIATION DOSAGE (If Supplied By Facility): CTDIvol = ( ) mGy, DLP = ( ) mGycm TECHNIQUE: Transaxial imaging was performed following intravenous administration of 100ML ml of Isovue 300 contrast material. Multiplanar coronal and sagittal images were reformatted. Individualized dose optimization techniques were used for this CT. COMPARISON: Abdomen/pelvis CT from yesterday FINDINGS: Small pleural effusions have developed since the prior study. There are numerous soft tissue nodules in essentially all pulmonary lobes, many of which are cavitating, as seen on CT abdomen/pelvis from yesterday. The largest single nodule in the lateral left upper lobe measures 1.9 cm in AP dimension. There is also a 1.9 cm partially cavitated nodule in the lateral right lower lobe. No pneumothorax. Normal heart and pericardium. Mildly prominent lymph nodes of the mediastinum identified with the largest single lymph node in the anterior mediastinum measuring 7 mm in short axis. Normal hilar regions. Normal enhanced pulmonary arteries. Mild atherosclerosis of the thoracic aorta. No destructive bony process. Upper abdomen described on abdomen/pelvis CT report. CT/Chest WITH Contrast IMPRESSION: 1. Numerous pulmonary nodules, many of which are cavitating. Mild reactive appearing mediastinal lymph nodes without dominant kervin mass. In the clinical setting of sepsis (and lack of known neoplasm), septic emboli favored over cavitating metastasis, although the latter is not excluded. Electronically Signed: Nigel Lal MD at 18:49 EST , Service support ,
--- NOTE | 2018-04-02 15:16 | CT_ITS ---
STUDY: CT ABDOMEN AND PELVIS WITH CONTRAST REASON FOR EXAM: Female, 77 years old. Liver lesions, sepsis, cavitary lung nodules RADIATION DOSAGE (If Supplied By Facility): CTDIvol = ( 18.09 ) mGy, DLP = ( 3491.64 ) mGycm TECHNIQUE: Transaxial images were obtained from the dome of the diaphragm to the symphysis pubis with oral contrast. 100ML ml of Isovue 300 contrast was administered. Sagittal and coronal images were reconstructed. Individualized dose optimization techniques were used for this CT. COMPARISON: Yesterday FINDINGS: Lung bases described on chest CT report. The liver is diffusely abnormal. There is a large dominant fluid collection the left hepatic lobe measuring 7.0 x 7.5 cm with somewhat thick, septations showing mild degree of enhancement on portal venous phase. Smaller fluid collections throughout the left and right hepatic lobes are also demonstrated, none of which demonstrate mural nodularity. One of the fluid collections of the left hepatic lobe extends beyond the margin of the capsule, towards the pancreatic body (coronal image 48 of series 601). Mild amount of ascites adjacent to the liver is new since the prior study. Normal gallbladder and extrahepatic biliary system. Normal spleen. Normal pancreas. Normal bilateral adrenal glands. Normal right kidney. Normal left kidney. Normal visualized stomach. Normal small intestine. The colon is only partially distended, limiting evaluation. There is non-visualization of the appendix. There is diffuse atherosclerotic calcification of the abdominal aorta, without a demonstrated aneurysm. Normal inferior vena cava. There is borderline retroperitoneal lymphadenopathy with enlarged nodes no greater than 10mm in the short axis diameter. Mild adenopathy of the upper abdomen including adjacent to the celiac axis and navarro hepatis but no dominant kervin mass. Normal urinary bladder. Normal visualized uterus. There is a deep vein thrombosis identified in the right common and superficial femoral vein (images 103-118, series 3). There is also a filling defect in the left common and superficial femoral vein (images 136-151 (series 2)). There are diffuse degenerative changes of the visualized lumbar spine. CT/Abdomen/Pelvis WITH Contrast IMPRESSION: 1. Multiple fluid collections in the left and right hepatic lobes with dominant collection in the left hepatic lobe. Likely represent infectious etiology such as abscess. Cystic neoplasms remain in the differential diagnosis, however. Unusual forms of infection such as echinococcus, could also be considered. Needle sampling may be necessary to distinguish. 2. New mild ascites. 3. Bilateral femoral DVT. 4. Mild adenopathy in the retroperitoneum and upper abdomen without dominant kervin mass. Electronically Signed: Nigel Lal MD at 19:05 EST , Service support ,
--- NOTE | 2018-04-02 19:58 | PCM.PN.BLA ---
Progress Note The patient had CT scan this afternoon. The CT scan shows multiple fluid collections in the liver as well as cavitary lesions in the lungs. The patient also has bilateral femoral DVTs. Given the fact that the patient is having fevers and an elevated white count, this lends more toward an infectious etiology. CT scan supports this diagnosis with possible abscess versus other more rare infectious cystic disease. The patient may be having septic emboli to the lungs causing the cavitary lesions. I recommend the patient be transferred to a tertiary care center. The patient needs a hepatic surgeon as well as infectious disease. If this is echinococcus the patient will need surgery by a hepatobiliary surgeon. The patient will need extensive follow-up and ID intervention for the cavitary lesions of the lung. The patient also has a known history of breast cancer but this was over 10 years ago. The possibility of malignant disease exists but I believe to be less likely. Given the patient's DVTs I would recommend therapeutic anticoagulation but I was originally consulted for dark stools and possible GI bleed. The patient will likely need a filter or trial of anticoagulation to see if the bleeding worsens. I will leave this up to the transferring physician. Cliff Green MD Pager: [facility] [address] [place] [address], [address] [place] [address] Office: Clinical Impression(s) from Imaging Studies Abdomen/Pelvis CT 04/02/18 15:16 IMPRESSION: 1. Multiple fluid collections in the left and right hepatic lobes with dominant collection in the left hepatic lobe. Likely represent infectious etiology such as abscess. Cystic neoplasms remain in the differential diagnosis, however. Unusual forms of infection such as echinococcus, could also be considered. Needle sampling may be necessary to distinguish. 2. New mild ascites. 3. Bilateral femoral DVT. 4. Mild adenopathy in the retroperitoneum and upper abdomen without dominant kervin mass. Electronically Signed: Nigel Lal MD at 19:05 EST , Service support , Chest CT 04/02/18 15:16 IMPRESSION: 1. Numerous pulmonary nodules, many of which are cavitating. Mild reactive appearing mediastinal lymph nodes without dominant kervin mass. In the clinical setting of sepsis (and lack of known neoplasm), septic emboli favored over cavitating metastasis, although the latter is not excluded. Electronically Signed: Nigel Lal MD at 18:49 EST , Service support ,
--- NOTE | 2018-04-02 20:02 | PN_ITS ---
Progress Note The patient had CT scan this afternoon. The CT scan shows multiple fluid collections in the liver as well as cavitary lesions in the lungs. The patient also has bilateral femoral DVTs. Given the fact that the patient is having fevers and an elevated white count, this lends more toward an infectious etiology. CT scan supports this diagnosis with possible abscess versus other more rare infectious cystic disease. The patient may be having septic emboli to the lungs causing the cavitary lesions. I recommend the patient be transferred to a tertiary care center. The patient needs a hepatic surgeon as well as infectious disease. If this is echinococcus the patient will need surgery by a hepatobiliary surgeon. The patient will need extensive follow-up and ID intervention for the cavitary lesions of the lung. The patient also has a known history of breast cancer but this was over 10 years ago. The possibility of malignant disease exists but I believe to be less likely. Given the patient's DVTs I would recommend therapeutic anticoagulation but I was originally consulted for dark stools and possible GI bleed. The patient will likely need a filter or trial of anticoagulation to see if the bleeding worsens. I will leave this up to the transferring physician. Cliff Green MD Pager: [facility] [address] [place] [address], [address] [place] [address] Office: Clinical Impression(s) from Imaging Studies Abdomen/Pelvis CT 04/02/18 15:16 IMPRESSION: 1. Multiple fluid collections in the left and right hepatic lobes with dominant collection in the left hepatic lobe. Likely represent infectious etiology such as abscess. Cystic neoplasms remain in the differential diagnosis, however. Unusual forms of infection such as echinococcus, could also be considered. Needle sampling may be necessary to distinguish. 2. New mild ascites. 3. Bilateral femoral DVT. 4. Mild adenopathy in the retroperitoneum and upper abdomen without dominant kervin mass. Electronically Signed: Nigel Lal MD at 19:05 EST , Service support , Chest CT 04/02/18 15:16 IMPRESSION: 1. Numerous pulmonary nodules, many of which are cavitating. Mild reactive appearing mediastinal lymph nodes without dominant kervin mass. In the clinical setting of sepsis (and lack of known neoplasm), septic emboli favored over cavitating metastasis, although the latter is not excluded. Electronically Signed: Nigel Lal MD at 18:49 EST , Service support ,
--- NOTE | 2018-04-02 20:46 | NURSING ---
Pt's IV went bad, Dr. Green in room when happened. This RN attempted new IV with no success. BUILD MANAGER Latoya called to come try.
[2018-04-02 21:29] LABS: Partial Thromboplast Time 32.8 Seconds (24.1-36.2)
--- NOTE | 2018-04-02 21:31 | NURSING ---
Report called to LOGAN Ochoa at [facility].
--- NOTE | 2018-04-02 21:50 | NURSING ---
Called pt's friend Chilo to make aware of transfer, pt's daughter staying with Chilo and states will make daughter aware.
[2018-04-02] MEDS: HEPARIN/D5w 25,000 UNITS 25,000 UNITS/250 ML IV.SOLN. 10 UNITS IV (21:54)
--- NOTE | 2018-04-02 22:02 | NURSING ---
Called LOGAN Ochoa from [facility] to make aware new IV was inserted & pt is about to leave [facility] now.
--- NOTE | 2018-04-03 06:56 | PCM.DC.SUM ---
Discharge Date and Diagnosis Date of Admission: 04/01/18 Date of Discharge: 04/03/18 - Primary Discharge Diagnosis Acute septic shock, unclear etiology Possible GI bleed Anemia, microcytic microchromic Multiple cavitary lesions in the lungs and liver Possible Echinococcus Bilateral femoral DVTs MAREN Hypokalemia Hypomagnesemia Hypophosphatemia Hyponatremia Possible malignancy - Secondary Discharge Diagnosis Chronic Problems Dyslipidemia (Chronic) Hypothyroidism (Chronic) Diabetes mellitus type 2 (Chronic) Hypertension (Chronic) Hospital Course and Treatment Imaging Results: Clinical Impression(s) from Imaging Studies Chest X-Ray 04/01/18 18:54 IMPRESSION: 1. Nonacute portable x-ray examination of the chest. Electronically Signed: Nigel Lal MD at 19:43 EST , Service support , Abdomen/Pelvis CT 04/01/18 19:53 IMPRESSION: 1. Multiple cavitary pulmonary nodules and multiple (including large dominant) hepatic masses suspicious for neoplasm. Differential diagnosis of cavitary nodules also includes septic emboli, however. Limited evaluation given lack of IV contrast. 2. Mild retroperitoneal and upper abdominal adenopathy but no dominant kervin mass. Electronically Signed: Nigel Lal MD at 21:08 EST , Service support , Abdomen/Pelvis CT 04/02/18 15:16 IMPRESSION: 1. Multiple fluid collections in the left and right hepatic lobes with dominant collection in the left hepatic lobe. Likely represent infectious etiology such as abscess. Cystic neoplasms remain in the differential diagnosis, however. Unusual forms of infection such as echinococcus, could also be considered. Needle sampling may be necessary to distinguish. 2. New mild ascites. 3. Bilateral femoral DVT. 4. Mild adenopathy in the retroperitoneum and upper abdomen without dominant kervin mass. Electronically Signed: Nigel Lal MD at 19:05 EST , Service support , Chest CT 04/02/18 15:16 IMPRESSION: 1. Numerous pulmonary nodules, many of which are cavitating. Mild reactive appearing mediastinal lymph nodes without dominant kervin mass. In the clinical setting of sepsis (and lack of known neoplasm), septic emboli favored over cavitating metastasis, although the latter is not excluded. Electronically Signed: Nigel Lal MD at 18:49 EST , Service support , General surgery Clinical Documentation Spec Operations: None Procedures: None Summary of Care Provided: The patient is a 77 year old F remote past medical history of breast cancer, type II DM, hypothyroidism, dyslipidemia, hypertension who comes in with complaints of generalized weakness ongoing for weeks. Patient had also complained of fever that has been intermittent where the last 2-3 weeks associated with nausea and vomiting. She was brought to the ED, found to be tachycardic and hypotensive. Chest x-ray showed no acute abnormality. CT of the abdomen showed cavitary lung lesions as well as liver mass and multiple liver lesions. Troponins was mildly elevated, lactic acid was 6. Patient was admitted to the ICU, managed on IV fluids. She did not need any pressors. She received IV fluids and IV antibiotics. Her blood work continue to improve with hydration. She was found to have anemia with a drop in hemoglobin from 10-8.1, likely with some hemodilution. Neurosurgery was consulted, requested CT of the abdomen and pelvis with contrast as well as chest CT. showed multiple fluid collections in the right and left hepatic lobes with dominant collection in the left hepatic lobe resembling abscess versus echinococcus. New mild ascites was seen as well as bilateral femoral DVTs and mild adenopathy of the retroperitoneum and upper abdomen. The chest with contrast showed numerous pulmonary nodules some of which are cavitating and reactive appearing mediastinal lymph nodes. Surgery recommended transfer of patient to a tertiary care facility for hepatic surgery as well as infectious disease consultation. General surgery helped to coordinate transfer. Patient was started on heparin drip for newly diagnosed DVTs of the femoral veins. Subjective: See progress note of the day Objective: See progress note on the day - Physical Exam Vital Signs Temp Pulse Resp BP Pulse Ox 98.8 F 105 H 18 140/71 H 95 04/02/18 20:26 04/02/18 20:26 04/02/18 20:26 04/02/18 20:26 01/27/19 20:26 Oxygen Delivery Method Room Air Weight: 61.7 kg Body Mass Index (BMI) 23.3 Intake and Output for Last 24 Hours 04/01/18 04/02/18 04/03/18 23:59 23:59 23:59 Intake Total 5232 / 5232 Output Total 1050 / 1050 Balance 4182 / 4182 Microbiology Past 72 Hours 04/01/18 19:10 Blood Culture - Preliminary Blood Culture (Wb) - Venous Laboratory Tests Past 24 Hrs 04/02/18 04/02/18 04/02/18 14:00 14:49 21:00 APTT 32.8 Sodium 139 Potassium 4.9 Chloride 109 H Carbon Dioxide 20.0 L Anion Gap 10 BUN 21 H Creatinine 1.14 H Estim Creat Clear Calc 36.25 Est GFR (MDRD) Af Amer 60 Est GFR (MDRD) Non-Af 49 L BUN/Creatinine Ratio 18.4 Glucose 123 H Calcium 6.9 L Magnesium 2.3 Total Bilirubin 3.90 H AST 169 H ALT 80 H Alkaline Phosphatase 365 H Total Protein 5.4 L Albumin 1.7 L Globulin 3.7 Albumin/Globulin Ratio 0.5 L Discharge Diet: Low fat/ Low Cholesterol, 2000 mg Sodium Diet Discharge Activity: Return to Normal Activity Home Medications: Medications to take at Discharge Aspirin [Aspirin, Baby] 81 mg PO DAILY@0800 04/01/18 Atorvastatin Calcium 20 mg PO DAILY 04/01/18 Levothyroxine Sodium 75 mcg DAILY 04/01/18 Losartan Potassium 100 mg DAILY 04/01/18 Metformin(XR) [Glucophage Xr] 500 mg DAILY 04/01/18 Multivit-Min/Iron/Folic/Lutein [Centrum Silver Women Tablet] 1 each PO DAILY 04/01/18 Omeprazole 20 mg PO DAILY 04/01/18 Primary Care Physician: Neha Chong MD [Primary Care Provider] - Disposition: Acute care Hospital Minutes spent on discharge:: 55 Patient Condition:: Stable Medical Necessity - Tobacco Use Smoking Status: Never smoker Tobacco Use: Non-smoker Meaningful Use Info Meaningful Use Diagnoses (Choose all that apply): None applicable Code Visit Inpatient E&M: 14095 Disch Hosp
[2018-04-05 09:19] LABS: Pathologist Review Reviewed
== END 2018-04-02 22:00 | disposition short-term general hospital (02) | DRG 871 ==
LOC: ED 22:04 → PCU 23:27 → ICU 04-02 00:01 → MS3 04-02 13:29
PROVIDERS: Surgery; Admitting Provider Internal Medicine; Emergency Provider Emergency Medicine; Family Provider Internal Medicine; PCP Internal Medicine; Visit Provider Internal Medicine
DX: A41.9 Sepsis, unspecified organism (principal); R65.21 Severe sepsis with septic shock; E87.2 Acidosis; E87.1 Hypo-osmolality and hyponatremia; I82.413 Acute embolism and thrombosis of femoral vein, bilateral; B67.90 Echinococcosis, unspecified; N17.9 Acute kidney failure, unspecified; K92.2 Gastrointestinal hemorrhage, unspecified; E78.5 Hyperlipidemia, unspecified; E03.9 Hypothyroidism, unspecified; E87.6 Hypokalemia; E83.42 Hypomagnesemia; E83.39 Other disorders of phosphorus metabolism; I10 Essential (primary) hypertension; Z85.3 Personal history of malignant neoplasm of breast; K76.9 Liver disease, unspecified; J98.4 Other disorders of lung; E11.9 Type 2 diabetes mellitus without complications; C80.1 Malignant (primary) neoplasm, unspecified; D50.9 Iron deficiency anemia, unspecified; Z79.84 Long term (current) use of oral hypoglycemic drugs
CPT/HCPCS: 36415; 71045; 71260; 74176; 74177; 80048; 80053; 80076; 81001; 83605; 83690; 83735; 84100; 84484; 85025; 85610; 85730; 87040; 87077; 87186; 93005; 94762; 97802; 99285; J7030; J7120; Q9967; A4216; J2405